=== PATIENT | male | born 1960 | race Caucasian/White ===

== ENCOUNTER 2017-09-25 19:52 | Emergency (ER) | payer BC ==
[2017-09-25] MEDS: ASPIRIN CHEWABLE 81 MG TABLET. PO (20:18)
[2017-09-25] MEDS: LIDO:MAALOX 1:1 20 ML SINGLE DOSE. PO (20:18)
[2017-09-25 20:30] LABS: ADD MAN DIFF? NO
[2017-09-25] MEDS: FAMOTIDINE 20 MG/2 ML VIAL IVP (20:31)
[2017-09-25 20:32] LABS: BASO # 0.1 x10^3/uL (0.0-0.2); BASO % 1 % (0-3); EOS # 0.3 x10^3/uL (0.0-0.7); EOS % 4 % (0-3); HEMATOCRIT 47.4 % (39.0-53.0); HEMOGLOBIN 16.1 g/dL (13.0-17.5); LYMPH # 1.1 x10^3/uL (1.0-4.8); LYMPH % 18 % (24-48); MEAN CORPUSCULAR HEMOGLOBIN 30 pg (25-35); MEAN CORPUSCULAR HGB CONC 34 g/dL (31-37); MEAN CORPUSCULAR VOLUME 87 fL (79-100); MONO # 0.8 x10^3/uL (0.0-1.1); MONO % 12 % (0-9); NEUT # 4.1 x10^3uL (1.8-7.7); NEUT % 65 % (31-73); PLATELET COUNT 230 x10^3/uL (140-400); RED BLOOD COUNT 5.46 x10^6/uL (4.30-5.70); WHITE BLOOD COUNT 6.4 x10^3/uL (4.0-11.0)
[2017-09-25] MEDS: IV NORMAL SALINE 1000ML BAG 1,000 ML IV (20:32)
[2017-09-25 20:43] LABS: ANION GAP 8 (6-14); BLOOD UREA NITROGEN 12 mg/dL (8-26); BUN/CREATININE RATIO 10 (6-20); CALCIUM 8.8 mg/dL (8.5-10.1); CARBON DIOXIDE 28 mmol/L (21-32); CHLORIDE 104 mmol/L (98-107); CREATININE 1.2 mg/dL (0.7-1.3); GFR 62.6; GLUCOSE 134 mg/dL (70-99); POTASSIUM 4.2 mmol/L (3.5-5.1); SODIUM 140 mmol/L (136-145)
[2017-09-25 20:49] LABS: ALBUMIN 3.9 g/dL (3.4-5.0); ALBUMIN/GLOBULIN RATIO 1.3 (1.0-1.7); ALK PHOS 57 U/L (46-116); ALT (SGPT) 66 U/L (16-63); AST (SGOT) 32 U/L (15-37); LIPASE 177 U/L (73-393); MAGNESIUM 1.9 mg/dL (1.8-2.4); TOTAL BILIRUBIN 0.5 mg/dL (0.2-1.0); TOTAL PROTEIN 6.8 g/dL (6.4-8.2)
[2017-09-25 20:50] LABS: TROPONINI < 0.017 ng/mL (0.000-0.055)
[2017-09-25 20:54] LABS: D-DIMER 0.53 ug/mlFEU (0.00-0.50); NT-PRO BNP 5 pg/mL (0-124)
[2017-09-25] MEDS ORDERED: CONTRAST GIVEN. MC (21:15)
[2017-09-25] MEDS: IOHEXOL 300 MG/ML 100ML VIAL. IV (21:22)
[2017-09-25] MEDS: KETOROLAC 15 MG/ML VIAL. IV (21:58)
[2017-09-25 22:32] LABS: TROPONINI < 0.017 ng/mL (0.000-0.055)
== END 2017-09-25 22:55 | disposition home or self-care (01) ==
LOC: ER 19:52
DX: R07.89 Other chest pain (principal); I10 Essential (primary) hypertension
CPT/HCPCS: 36415; 71275; 80053; 83690; 83735; 83880; 84484; 85025; 85379; 93005; 96374; 96375; 99285-25; J1885; J7030; Q9967; S0028